=== PATIENT | female | born 1945 | race Hispanic/Latino ===

== ENCOUNTER → 2025-01-17 | Outpatient (REF) | payer OTHER | LOC: US 09:24 → EDSEX 10:00 | PROVIDERS: ATTEND Nurse Practitioner | DX: R10.12 Left upper quadrant pain (principal) | CPT/HCPCS: 76700 ==

== ENCOUNTER → 2025-01-29 | Day surgery (SDC) | payer OTHER ==
[2025-01-23 09:20] LABS: BASOPHILS % 0.9 % (0.0-1.0); EOSINOPHILS % 3.0 % (0.0-6.0); LYMPHOCYTES % 43.3 % (18.0-39.1); MONOCYTES % 9.2 % (4.4-11.3); NEUTROPHILS % 43.4 % (38.7-80.0); RED CELL DISTRIBUTION WIDTH 17.2 % (11.7-14.4)
[~2025-01-29] MED LIST: BRAIN MIGHT-DH1 EACH PO; COREG12.5 MG PO; CYPROHEPTADINE H4 MG PO; FISH OIL 1,0001 EAC7 PO; FUROSEMIDE40 MG PO; KETAMINE HCL INJ 50 MG/ML 10 ML VIAL ONE; LOSARTAN POTASS25 MG PO; PROPOFOL IV EMULSION 50 ML IV ONE; SIMVASTATIN20 MG PO; VIT B12 PO; WARFARIN SODIU2.5 MG PO
[2025-01-29] MEDS: LACTATED RINGER'S 1,000 ML ONE (07:35)
[2025-01-29 08:33] LABS: INR 1.07
[2025-01-29 09:59] VITALS: TEMP 98.5
[2025-01-29 10:25] VITALS: BP 121/78; PULSE 64; RESP 18; O2SAT 99
[2025-02-06 07:13] LABS: ENDOMYSIAL ANTIBODIES, IGA Negative (Negative)
[2025-02-06 12:12] LABS: TISSUE TRANSGLUTAMINASE IGA AB <2 U/mL (0-3)
== END | disposition home or self-care (01) ==
LOC: EDSEX → OR 06:39
PROVIDERS: ATTEND Internal Medicine Gastroenterology
DX: D64.9 Anemia, unspecified (principal); K29.50 Unspecified chronic gastritis without bleeding; B96.81 Helicobacter pylori [H. pylori] as the cause of diseases classified elsewhere; K55.20 Angiodysplasia of colon without hemorrhage; K31.89 Other diseases of stomach and duodenum; K29.80 Duodenitis without bleeding; K31.A12 Gastric intestinal metaplasia without dysplasia, involving the body (corpus); K20.90 Esophagitis, unspecified without bleeding; K44.9 Diaphragmatic hernia without obstruction or gangrene; K57.30 Diverticulosis of large intestine without perforation or abscess without bleeding; K64.8 Other hemorrhoids; I10 Essential (primary) hypertension; Z71.89 Other specified counseling; E78.5 Hyperlipidemia, unspecified; M54.2 Cervicalgia; M54.9 Dorsalgia, unspecified; M06.9 Rheumatoid arthritis, unspecified; M19.90 Unspecified osteoarthritis, unspecified site; F17.210 Nicotine dependence, cigarettes, uncomplicated; Z71.6 Tobacco abuse counseling; Z01.810 Encounter for preprocedural cardiovascular examination; Z01.812 Encounter for preprocedural laboratory examination; Z79.01 Long term (current) use of anticoagulants; Z79.899 Other long term (current) drug therapy; Z68.24 Body mass index [BMI] 24.0-24.9, adult
CPT/HCPCS: 36415 ×2; 43239; 45388; 82784; 83516; 85025; 85610; 85730; 86256; 93005; J2470; J2704; J7121; 45378